=== PATIENT | male | born 1990 | race Caucasian/White ===

== ENCOUNTER 2019-05-26 14:30 | Emergency (ER) | payer SELFPAY ==
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
--- NOTE | 2019-05-26 15:40 | CR ---
Chest: 2 views of the chest were obtained. Comparison: No previous chest imaging. Heart size and mediastinum are normal. Scoliosis noted within the spine. Mild pectus excavatum deformity is seen. No acute parenchymal change is seen. Impression: 1. Nothing acute is seen on 2 view chest x-ray. Diagnostic code #2 This report was dictated in MDT
== END 2019-05-26 16:00 | disposition home or self-care (01) ==
LOC: MW.ED 14:30
DX: R06.00 Dyspnea, unspecified (principal); Z79.899 Other long term (current) drug therapy
CPT/HCPCS: 71046; 71046-26; 99284-25

== ENCOUNTER 2019-11-19 07:15 | Emergency (ER) | payer OTHER ==
[2019-11-19] MEDS ORDERED: Sodium Chloride 0.9% 2.5 ML Syringe FLUSH PRN (07:33)
[2019-11-19] MEDS ORDERED: Sodium Chloride 0.9% 1,000 ML IV ONE (07:33)
[2019-11-19] MEDS ORDERED: Sodium Chloride 0.9% 10 ML Syringe FLUSH PRN (07:33)
--- NOTE | 2019-11-19 07:39 | EDM.PDOC ---
ED HPI GENERAL MEDICAL PROBLEM - General Chief Complaint: Neurological Problem Stated Complaint: PASSED OUT Time Seen by Provider: 11/19/19 07:30 Source of Information: Reports: Patient History Limitations: Reports: No Limitations - History of Present Illness INITIAL COMMENTS - FREE TEXT/NARRATIVE: History of present illness: [Patient is 29-year-old male presenting to the ER with a syncopal event earlier this morning. He states that he was walking in his house when he felt sudden onset of dizziness, this lasted about 30 seconds and following the episode of dizziness he passed out. He estimates that he was unconscious for less than a minute. Denies any seizure-like activity. Denies any urinary or bowel incontinence. Denies any headache, blurry vision, focal neurological deficit, chest pain, shortness of breath. States other than dizziness, he had no preceding symptoms. States that as a teenager he has a history of "mini strokes" and that there was no official diagnosis or reason given him for what happened. He states that the neurological deficits he experienced at that time have completely resolved, he has no residual deficits from the events he experienced as a teenager. He states that he was told there were "spots on his brain" and he used to get headaches often in his late teens that he believes are related to these events. He states that for the last 9 years he has been fairly healthy and relatively symptom-free as far as all these neurological symptoms go. Denies any recent fever cold, cough, chills.] Review of systems: As per history of present illness and below otherwise all systems reviewed and negative. Past medical history: As per history of present illness and as reviewed below otherwise noncontributory. Surgical history: As per history of present illness and as reviewed below otherwise noncontributory. Social history: No reported history of drug or alcohol abuse. Family history: As per history of present illness and as reviewed below otherwise noncontributory. Physical exam: General: Awake, alert, no acute distress, A&O X3. HEENT: Atraumatic, normocephalic, pupils reactive, negative for conjunctival pallor or scleral icterus, mucous membranes moist, throat clear, neck supple, nontender, trachea midline. Lungs: Clear to auscultation, breath sounds equal bilaterally, chest nontender. Heart: RRR, normal S1S2, no JVD. Abdomen: Soft, nondistended, nontender. Negative for masses or hepatosplenomegaly. Negative for costovertebral tenderness. Pelvis: Stable nontender. Genitourinary: Deferred. Rectal: Deferred. Extremities: Atraumatic, no edema, Neurovascular unremarkable. Neuro: Motor and sensory grossly intact throughout. Exam nonfocal. Diagnostics: [] Therapeutics: [] Impression: [] Plan: [] Definitive disposition and diagnosis as appropriate pending reevaluation and review of above. - Related Data Allergies Allergy/AdvReac Type Severity Reaction Status Date / Time No Known Allergies Allergy Verified 11/19/19 07:29 Home Meds: Home Meds Aspirin [Lance Chewable Aspirin] 81 mg PO DAILY 11/19/19 [History] Past Medical History HEENT History: Reports: None Cardiovascular History: Reports: None Respiratory History: Reports: None Gastrointestinal History: Reports: None Genitourinary History: Reports: None Musculoskeletal History: Reports: None Neurological History: Reports: None Psychiatric History: Reports: None Endocrine/Metabolic History: Reports: None Hematologic History: Reports: None Immunologic History: Reports: None Oncologic (Cancer) History: Reports: None Dermatologic History: Reports: None - Infectious Disease History Infectious Disease History: Reports: None - Past Surgical History Head Surgeries/Procedures: Reports: None HEENT Surgical History: Reports: None Cardiovascular Surgical History: Reports: None Respiratory Surgical History: Reports: None GI Surgical History: Reports: Appendectomy Male Surgical History: Reports: None Endocrine Surgical History: Reports: None Neurological Surgical History: Reports: None Musculoskeletal Surgical History: Reports: None Oncologic Surgical History: Reports: None Dermatological Surgical History: Reports: None Social & Family History - Family History Family Medical History: Noncontributory - Caffeine Use Caffeine Use: Reports: None ED ROS GENERAL - Review of Systems Review Of Systems: Comprehensive ROS is negative, except as noted in HPI. ED EXAM, NEURO - Physical Exam Exam: See Below (see h and p) EKG INTERPRETATION EKG Date: 11/19/19 Time: 07:56 Rhythm: NSR Rate (Beats/Min): 65 [place]: Normal P-Wave: Present QRS: Other (RSR' in V1 V2) ST-T: Other (some early repol present) QT: Normal EKG Interpretation Comments: normal sinus with possible LVH Course - Vital Signs Text/Narrative:: Patient has a reassuring work-up here in the ED. CT scan of the brain is negative. Chest x-ray clear. Labs are unremarkable. PERC negative. No associated chest pain or shortness of breath. Syncope was not exertional. EKG shows some early re-pole, possible LVH, but no acute ischemic changes and is a normal sinus rhythm. Patient has stable vital signs. Negative orthostatic vital signs here. No current complaints. No blurry vision, no headache, no chest pain, shortness of breath, no focal neurological deficits. He does not have a PCP to follow-up with here locally. I told him he would need to establish primary care physician follow-up here and that he would benefit from getting a repeat echocardiogram. Patient understands this plan and is agreeable with it. I do not believe he meets criteria for admission or further work-up at this time. He is hemodynamically stable and otherwise well-appearing. Return precautions provided for new or worsening symptoms including recurrent episodes of syncope, exertional syncope, chest pain, shortness of breath, focal neurological deficits, etc. Last Recorded V/S: Last Vital Signs Temp 35.7 C L 11/19/19 07:25 Pulse 82 11/19/19 07:25 Resp 16 11/19/19 07:25 BP 128/81 11/19/19 07:25 Pulse Ox 95 11/19/19 07:25 Orthostatic Blood Pressure [ 120/82 Standing] Orthostatic Blood Pressure [ 126/78 Sitting] Orthostatic Blood Pressure [ 118/68 Supine] - Orders/Labs/Meds Orders: Active Orders 24 hr Category Date Time Status EKG 12 Lead [EKG Documentation Completion] [RC] STAT Care 11/19/19 07:39 Active Orthostatic Vital Signs [RC] ASDIRECTED Care 11/19/19 07:35 Active Sodium Chloride 0.9% [Saline Flush] Med 11/19/19 07:33 Active 10 ml FLUSH ASDIRECTED PRN Sodium Chloride 0.9% [Saline Flush] Med 11/19/19 07:33 Active 2.5 ml FLUSH ASDIRECTED PRN Saline Lock Insert [OM.PC] Stat Oth 11/19/19 07:33 Ordered Medication Orders Sodium Chloride (Saline Flush) 10 ml FLUSH ASDIRECTED PRN PRN Reason: Keep Vein Open Last Admin: 11/19/19 08:05 Dose: 10 ml Documented by: MURDNIC Sodium Chloride (Saline Flush) 2.5 ml FLUSH ASDIRECTED PRN PRN Reason: Keep Vein Open Last Admin: 11/19/19 08:05 Dose: 2.5 ml Documented by: JADYN Labs: Laboratory Tests 11/19/19 11/19/19 Range/Units 08:02 08:02 WBC 7.42 (4.0-11.0) K/uL RBC 5.01 (4.50-5.90) M/uL Hgb 14.6 (13.0-17.0) g/dL Hct 43.3 (38.0-50.0) % MCV 86.4 (80.0-98.0) fL MCH 29.1 (27.0-32.0) pg MCHC 33.7 (31.0-37.0) g/dL RDW Std Deviation 40.8 (28.0-62.0) fl RDW Coeff of Timmy 13 (11.0-15.0) % Plt Count 195 (150-400) K/uL MPV 11.10 (7.40-12.00) fL Neut % (Auto) 59.4 (48.0-80.0) % Lymph % (Auto) 26.1 (16.0-40.0) % [place] % (Auto) 9.2 (0.0-15.0) % Eos % (Auto) 4.9 (0.0-7.0) % Baso % (Auto) 0.4 (0.0-1.5) % Neut # (Auto) 4.4 (1.4-5.7) K/uL Lymph # (Auto) 1.9 (0.6-2.4) K/uL [place] # (Auto) 0.7 (0.0-0.8) K/uL Eos # (Auto) 0.4 (0.0-0.7) K/uL Baso # (Auto) 0.0 (0.0-0.1) K/uL Nucleated RBC % 0.0 /100WBC Nucleated RBCs # 0 K/uL Sodium 146 (136-148) mmol/L Potassium 3.8 (3.5-5.1) mmol/L Chloride 107 (98-107) mmol/L Carbon Dioxide 28.0 (21.0-32.0) mmol/L BUN 17 (7.0-18.0) mg/dL Creatinine 1.0 (0.8-1.3) mg/dL Est Cr Clr Drug Dosing 106.78 mL/min Estimated GFR (MDRD) > 60.0 ml/min Glucose 103 (74-106) mg/dL Calcium 9.0 (8.5-10.1) mg/dL Total Bilirubin 0.2 (0.2-1.0) mg/dL AST 16 (15-37) IU/L ALT 19 (14-63) IU/L Alkaline Phosphatase 64 (46-116) U/L Total Protein 7.1 (6.4-8.2) g/dL Albumin 4.1 (3.4-5.0) g/dL Globulin 3.0 (2.6-4.0) g/dL Albumin/Globulin Ratio 1.4 (0.9-1.6) Meds: Medications Generic Name Dose Route Start Last Admin Trade Name Freq PRN Reason Stop Dose Admin Sodium Chloride 10 ml 11/19/19 07:33 11/19/19 08:05 Saline Flush FLUSH 10 ml ASDIRECTED PRN Administration Keep Vein Open Sodium Chloride 2.5 ml 11/19/19 07:33 11/19/19 08:05 Saline Flush FLUSH 2.5 ml ASDIRECTED PRN Administration Keep Vein Open Discontinued Medications Generic Name Dose Route Start Last Admin Trade Name Freq PRN Reason Stop Dose Admin Sodium Chloride 1,000 mls @ 999 mls/hr 11/19/19 07:33 11/19/19 08:05 Normal Saline IV 11/19/19 08:33 999 mls/hr .Bolus ONE Administration Departure - Departure Time of Disposition: 08:52 Disposition: Home, Self-Care 01 Condition: Good Clinical Impression: Syncope and collapse - Discharge Information Instructions: Syncope, [id number] Referrals: PCP,None [Primary Care Provider] - Forms: ED Department Discharge Additional Instructions: [facility] - Internal Medicine [address] [place] [id number] [facility] - Cardiology [address] [place] [id number] Return to the ER with any new or worsening symptoms including recurrent episodes of syncope. Chest pain, shortness of breath, focal neurological deficits, etc. otherwise follow-up with PCP and cardiology in the outpatient setting. The following information is given to patients seen in the emergency department who are being discharged to home. This information is to outline your options for follow-up care. We provide all patients seen in our emergency department with a follow-up referral. The need for follow-up, as well as the timing and circumstances, are variable depending upon the specifics of your emergency department visit. If you don't have a primary care physician on staff, we will provide you with a referral. We always advise you to contact your personal physician following an emergency department visit to inform them of the circumstance of the visit and f or follow-up with them and/or the need for any referrals to a consulting specialist. The emergency department will also refer you to a specialist when appropriate. This referral assures that you have the opportunity for follow-up care with a specialist. All of these measure are taken in an effort to provide you with optimal care, which includes your follow-up. Under all circumstances we always encourage you to contact your private physician who remains a resource for coordinating your care. When calling for follow-up care, please make the office aware that this follow-up is from your recent emergency room visit. If for any reason you are refused follow-up, please contact the [facility] Emergency Department at and asked to speak to the emergency department charge nurse. Sepsis Event Note (ED) - Evaluation Sepsis Screening Result: No Definite Risk - Focused Exam Vital Signs: Vital Signs Temp Pulse Resp BP Pulse Ox 11/19/19 07:25 35.7 C L 82 16 128/81 95 - My Orders Last 24 Hours: My Active Orders 11/19/19 07:33 Sodium Chloride 0.9% [Saline Flush] 10 ml FLUSH ASDIRECTED PRN Sodium Chloride 0.9% [Saline Flush] 2.5 ml FLUSH ASDIRECTED PRN Saline Lock Insert [OM.PC] Stat 11/19/19 07:35 Orthostatic Vital Signs [RC] ASDIRECTED 11/19/19 07:39 EKG 12 Lead [EKG Documentation Completion] [RC] STAT - Assessment/Plan Last 24 Hours: My Active Orders 11/19/19 07:33 Sodium Chloride 0.9% [Saline Flush] 10 ml FLUSH ASDIRECTED PRN Sodium Chloride 0.9% [Saline Flush] 2.5 ml FLUSH ASDIRECTED PRN Saline Lock Insert [OM.PC] Stat 11/19/19 07:35 Orthostatic Vital Signs [RC] ASDIRECTED 11/19/19 07:39 EKG 12 Lead [EKG Documentation Completion] [RC] STAT
--- NOTE | 2019-11-19 08:25 | CR ---
INDICATION: Syncope. TECHNIQUE: Chest 1 view COMPARISON: Chest radiograph 05/26/2019. FINDINGS: No focal consolidation, pleural effusion, or pneumothorax. Normal heart size and pulmonary vascularity. Thoracolumbar curve. IMPRESSION: No acute cardiopulmonary findings. Dictated by Mariana Rabago MD @ Nov 19 2019 8:21AM Signed by Dr. Mariana Rabago @ Nov 19 2019 8:23AM
--- NOTE | 2019-11-19 08:29 | CT ---
INDICATION: Syncope this a.m., history of strokes as a teen, spots on brain. COMPARISON: None. TECHNIQUE: CT of the head without IV contrast. Coronal and sagittal reconstructions are provided. FINDINGS: No intracranial hemorrhage, mass effect, or evidence of acute infarct. No midline shift. No abnormal extra-axial fluid collections. Normal caliber ventricular system. Orbits and extraocular muscles are symmetric. Opacification of a few left anterior ethmoid air cells. The paranasal sinuses and mastoid air cells are otherwise clear. No acute fracture. Soft tissues are unremarkable. IMPRESSION: : No acute intracranial findings. Please note that all CT scans at this facility use dose modulation, iterative reconstruction, and/or weight-based dosing when appropriate to reduce radiation dose to as low as reasonably achievable. Dictated by Mariana Rabago MD @ Nov 19 2019 8:23AM Signed by Dr. Marinaa Rabago @ Nov 19 2019 8:27AM
[2019-11-19 08:40] LABS: BLOOD UREA NITROGEN,BUN 17 mg/dL (7.0-18.0); CHLORIDE,CL 107 mmol/L (98-107); GLUCOSE RANDOM 103 mg/dL (74-106); POTASSIUM,K 3.8 mmol/L (3.5-5.1); SODIUM,NA 146 mmol/L (136-148)
== END 2019-11-19 08:58 | disposition home or self-care (01) ==
LOC: MW.ED 07:15
DX: R55 Syncope and collapse (principal); Z79.82 Long term (current) use of aspirin; Z90.49 Acquired absence of other specified parts of digestive tract
CPT/HCPCS: 36415; 70450; 71045; 80053; 85025; 93005; 96360; 99284; J7030; 99283

== ENCOUNTER 2019-12-19 18:35 | Emergency (ER) | payer SELFPAY ==
[2019-12-19] MEDS ORDERED: Ketorolac 15 MG/ML SDV IM ONE (18:44)
[2019-12-19] MEDS ORDERED: Prochlorperazine 10 MG Tab PO ONE (18:44)
[2019-12-19] MEDS ORDERED: Acetaminophen 325 MG Tab PO ONE (18:44)
--- NOTE | 2019-12-19 18:51 | EDM.PDOC ---
ED [facility] GENERAL MEDICAL PROBLEM - General Chief Complaint: Headache Stated Complaint: HEADACHE Time Seen by Provider: 12/19/19 18:38 - History of Present Illness INITIAL COMMENTS - FREE TEXT/NARRATIVE: HISTORY AND PHYSICAL: History of present illness: This 29-year-old male with past medical history of chronic migraines, marijuana use for his chronic migraines, and previous CT imaging that shows no evidence of underlying mass lesion presents emergency department with third day of his migraine-like pain. He states that the pain begins behind his eyes, radiates towards the back of the head and feels like tension or pressure. He does get some photophobia and he does have nausea. No fever. No pain with range of motion of the neck. No urinary symptoms. No fever. No other associated signs or symptoms. No other modifying, aggravating or alleviating factors. Review of systems: A 10-point review of systems, other than pertinent positives and negatives as stated per HPI, is otherwise negative. Past medical history: As per history of present illness and as reviewed below otherwise noncontributory. Surgical history: As per history of present illness and as reviewed below otherwise noncontributory. Social history: No reported history of drug or alcohol abuse. Family history: As per history of present illness and as reviewed below otherwise noncontributory. Physical exam: VITAL SIGNS: Reviewed. GENERAL: He was to be in acute pain HEAD: No signs of head trauma. EYES: Pupils are equal. Extraocular motions intact. EARS: Hearing grossly intact. MOUTH: Oropharynx is normal. NECK: No adenopathy, no JVD. CHEST: Chest with clear breath sounds bilaterally. No wheezes, rales, or rhonchi. CARDIAC: Regular rate and rhythm. Normal S1 and S2, without murmurs, gallops, or rubs. VASCULAR: Peripheral pulses normal and equal in all extremities. ABDOMEN: Soft, without detectable tenderness. No sign of distention. No rebound or guarding, and no masses palpated. MUSCULOSKELETAL: Good range of motion of all major joints. Extremities without clubbing, cyanosis or edema. NEUROLOGIC EXAM: Alert and oriented x 3. No focal sensory or motor deficits. Speech normal. Follows commands. Cranial nerves II through XII are intact. Walks with a normal gait. PSYCHIATRIC: Mood normal. SKIN: No rash or lesions. Initial Differential Diagnosis & Plan: Differential diagnosis includes meningitis, subarachnoid hemorrhage, trauma, mass lesion, carbon dioxide of exposure, cavernous sinus venous thrombosis, and pseudotumor cerebri. There is no neck stiffness or fever to suggest meningitis. There was no evidence of carbon monoxide exposure. There is not a history of hypercoagulability or cranial nerve deficits to suggest cavernous venous thrombosis. The vision is normal and the duration is not long enough to consider pseudotumor cerebri. There is no evidence of trauma to suggest epidural hematoma or subdural hematoma. The onset was gradual and it is not the worst headache ever making subarachnoid hemorrhage less likely. The [place] subarachnoid hemorrhage rule was considered and the following criteria were evaluated Age greater than or equal to 40 Neck pain or stiffness Witnessed loss of consciousness Onset during exertion [place] headache (peaking pain within one second) Limited neck flexion on exam The patient answered no for all of these criteria Given the patient's presentation this is most likely is recurrent migraine. We will treat with oral medications and intramuscular ketorolac which is worked in the past well for him. We will discharge the patient home for migraine therapy at home. We will also give other medications for at home. Definitive disposition and diagnosis as appropriate pending reevaluation and review of above. - Related Data Allergies Allergy/AdvReac Type Severity Reaction Status Date / Time No Known Allergies Allergy Verified 12/19/19 18:45 Home Meds: Home Meds Prochlorperazine Maleate [Compazine] 10 mg PO TID PRN #30 tablet 12/19/19 [Rx] SUMAtriptan [Sumatriptan] 5 mg NS DAILY #9 spray 12/19/19 [Rx] Sulindac [Clinoril] 200 mg PO BIDMEALS #60 tab 12/19/19 [Rx] Past Medical History HEENT History: Reports: None Cardiovascular History: Reports: None Respiratory History: Reports: None Gastrointestinal History: Reports: None Genitourinary History: Reports: None Musculoskeletal History: Reports: None Neurological History: Reports: None Other Neuro History: Patient states he has had two strokes, one in 2008 and one 2018. Psychiatric History: Reports: None Endocrine/Metabolic History: Reports: None Hematologic History: Reports: None Immunologic History: Reports: None Oncologic (Cancer) History: Reports: None Dermatologic History: Reports: None - Infectious Disease History Infectious Disease History: Reports: None - Past Surgical History Head Surgeries/Procedures: Reports: None HEENT Surgical History: Reports: None Cardiovascular Surgical History: Reports: None Respiratory Surgical History: Reports: None GI Surgical History: Reports: Appendectomy Male Surgical History: Reports: None Endocrine Surgical History: Reports: None Neurological Surgical History: Reports: None Musculoskeletal Surgical History: Reports: None Oncologic Surgical History: Reports: None Dermatological Surgical History: Reports: None Social & Family History - Family History Family Medical History: Noncontributory - Caffeine Use Caffeine Use: Reports: None ED ROS GENERAL - Review of Systems Review Of Systems: See Below (noted) - Physical Exam Exam: See Below (noted) Course - Orders/Labs/Meds Orders: Active Orders 24 hr Category Date Time Status Acetaminophen [TylenoL] Med 12/19/19 18:44 Once 975 mg PO NOW ONE Ketorolac [Toradol] Med 12/19/19 18:44 Once 15 mg IM ONETIME ONE Prochlorperazine [Compazine] Med 12/19/19 18:44 Once 10 mg PO ONETIME ONE dexAMETHasone Med 12/19/19 18:44 Once 10 mg PO ONETIME ONE Medication Orders Acetaminophen (Tylenol) 975 mg PO NOW ONE Stop: 12/19/19 18:45 Dexamethasone (Dexamethasone) 10 mg PO ONETIME ONE Stop: 12/19/19 18:45 Ketorolac Tromethamine (Toradol) 15 mg IM ONETIME ONE Stop: 12/19/19 18:45 Prochlorperazine Maleate (Compazine) 10 mg PO ONETIME ONE Stop: 12/19/19 18:45 Meds: Medications Generic Name Dose Route Start Last Admin Trade Name Freq PRN Reason Stop Dose Admin Acetaminophen 975 mg 12/19/19 18:44 Tylenol PO 12/19/19 18:45 NOW ONE Dexamethasone 10 mg 12/19/19 18:44 Dexamethasone PO 12/19/19 18:45 ONETIME ONE Ketorolac Tromethamine 15 mg 12/19/19 18:44 Toradol IM 12/19/19 18:45 ONETIME ONE Prochlorperazine Maleate 10 mg 12/19/19 18:44 Compazine PO 12/19/19 18:45 ONETIME ONE - Re-Assessments/Exams Free Text/Narrative Re-Assessment/Exam: 12/19/19 18:52 My diagnostic impression 1. Recurrent migraine Departure - Departure Time of Disposition: 18:46 Disposition: Home, Self-Care 01 Clinical Impression: Migraine - Discharge Information *PRESCRIPTION DRUG MONITORING PROGRAM REVIEWED*: Not Applicable *COPY OF PRESCRIPTION DRUG MONITORING REPORT IN PATIENT [place]: Not Applicable Instructions: Recurrent Migraine Headache Referrals: PCP,None [Primary Care Provider] - Additional Instructions: The following information is given to patients seen in the emergency department who are being discharged to home. This information is to outline your options for follow-up care. We provide all patients seen in our emergency department with a follow-up referral. The need for follow-up, as well as the timing and circumstances, are variable depending upon the specifics of your emergency department visit. If you don't have a primary care physician on staff, we will provide you with a referral. We always advise you to contact your personal physician following an emergency department visit to inform them of the circumstance of the visit and for follow-up with them and/or the need for any referrals to a consulting specialist. The emergency department will also refer you to a specialist when appropriate. This referral assures that you have the opportunity for follow-up care with a specialist. All of these measure are taken in an effort to provide you with optimal care, which includes your follow-up. Thank you for coming to the [facility] urgency department for your care today. It was Dr. Lui's pleasure to take care of you. [facility] - Primary Care [address] [place] [address] [place] [address] You have had CAT scan imaging of your brain in the last 6 months and there are no lesions. You present with recurrent migraine headache. Please take the medications as prescribed. Return to the emergency department for fever, confusion, or any other concerns. We are always happy to see you. Under all circumstances we always encourage you to contact your private physician who remains a resource for coordinating your care. When calling for follow-up care, please make the office aware that this follow-up is from your recent emergency room visit. If for any reason you are refused follow-up, please contact the [facility] Emergency Department at and asked to speak to the emergency department charge nurse. - My Orders Last 24 Hours: My Active Orders 12/19/19 18:44 Acetaminophen [TylenoL] 975 mg PO NOW ONE Ketorolac [Toradol] 15 mg IM ONETIME ONE Prochlorperazine [Compazine] 10 mg PO ONETIME ONE dexAMETHasone 10 mg PO ONETIME ONE - Assessment/Plan Last 24 Hours: My Active Orders 12/19/19 18:44 Acetaminophen [TylenoL] 975 mg PO NOW ONE Ketorolac [Toradol] 15 mg IM ONETIME ONE Prochlorperazine [Compazine] 10 mg PO ONETIME ONE dexAMETHasone 10 mg PO ONETIME ONE
[2019-12-19] MEDS ORDERED: Dexamethasone 10 MG/ML SDV ONE (18:52)
== END 2019-12-19 19:11 | disposition home or self-care (01) ==
LOC: MW.ED 18:35
DX: G43.909 Migraine, unspecified, not intractable, without status migrainosus (principal); Z79.899 Other long term (current) drug therapy
CPT/HCPCS: 96372; 99283; A9270; J1100; J1885; 99282; Q0164